=== PATIENT | female | born 1955 | race Caucasian/White ===

== ENCOUNTER → 2018-07-06 | Outpatient (CLI) | payer MEDICARE, MEDICAID ==
[~2018-07-06] MED LIST: AMITIZA24 MCG PO; AMITRIPTYLINE10 MG PO; CALCIUM 500500 MG PO; CENTRUM SILVER1 CTB PO; DOMPERIDONE10 MG/CAP PO; DOXYCYCLINE 10100 MG PO; FLONASE NASAL S16 GM NS; LYRICA 50MG CAP50 MG PO; MULTIPLE VITAMI1 TAB PO; NEURONTIN300 MG/CAP PO; NEXIUM40 MG PO; PLAVIX 75MG TAB75 MG PO; PROTONIX 40MG T40 MG PO; RT ADVAIR HFA 1112 G IH; SINGULAIR 110 MG/TAB PO; SYNTHROID 0.0.025 MG PO
== END ==
LOC: MHCPAIN 13:31
DX: G89.29 Other chronic pain (principal); M47.817 Spondylosis without myelopathy or radiculopathy, lumbosacral region; M54.16 Radiculopathy, lumbar region; M53.3 Sacrococcygeal disorders, not elsewhere classified; M96.1 Postlaminectomy syndrome, not elsewhere classified; M79.18 Myalgia, other site
CPT/HCPCS: G0463; J1040

== ENCOUNTER → 2018-10-03 | Outpatient (CLI) | payer MEDICARE, MEDICAID | LOC: MHCPAIN 09:05 | DX: G89.29 Other chronic pain (principal); M47.817 Spondylosis without myelopathy or radiculopathy, lumbosacral region; M54.16 Radiculopathy, lumbar region; M53.3 Sacrococcygeal disorders, not elsewhere classified; M96.1 Postlaminectomy syndrome, not elsewhere classified | CPT/HCPCS: G0463 ==

== ENCOUNTER → 2022-06-03 | Outpatient (CLI) | payer MEDICARE, MEDICAID | LOC: COL.RAD 14:45 | DX: D47.2 Monoclonal gammopathy (principal); N28.1 Cyst of kidney, acquired | CPT/HCPCS: Q9967 ==

== ENCOUNTER → 2022-10-14 | Outpatient (CLI) | payer MEDICARE, MEDICAID | LOC: COL.RAD 07:30 | DX: R29.898 Other symptoms and signs involving the musculoskeletal system (principal); Z86.73 Personal history of transient ischemic attack (TIA), and cerebral infarction without residual deficits | CPT/HCPCS: A9575 ==

== ENCOUNTER → 2022-10-16 | Outpatient (CLI) | payer MEDICARE, MEDICAID | LOC: COL.RAD 07:29 | DX: M48.02 Spinal stenosis, cervical region (principal); M50.222 Other cervical disc displacement at C5-C6 level; R29.898 Other symptoms and signs involving the musculoskeletal system; Z86.73 Personal history of transient ischemic attack (TIA), and cerebral infarction without residual deficits | CPT/HCPCS: A9575 ==

== ENCOUNTER → 2022-10-20 | Outpatient (CLI) | payer MEDICARE, MEDICAID | LOC: COL.RAD 06:31 | DX: K76.89 Other specified diseases of liver (principal); N28.1 Cyst of kidney, acquired; K21.9 Gastro-esophageal reflux disease without esophagitis; K31.84 Gastroparesis | CPT/HCPCS: A9575 ==

== ENCOUNTER → 2022-11-06 | Outpatient (CLI) | payer MEDICARE, MEDICAID | LOC: COL.RAD 09:23 | DX: K76.89 Other specified diseases of liver (principal); R29.898 Other symptoms and signs involving the musculoskeletal system; Z86.73 Personal history of transient ischemic attack (TIA), and cerebral infarction without residual deficits ==